=== PATIENT | female | born 1955 | race Caucasian/White ===

== ENCOUNTER → 2020-04-16 | Outpatient (CLI) | payer MEDICARE ==
--- NOTE | 2020-04-19 13:05 | REP ---
INDICATION: PANCREATITIS. COMPARISON: Comparison is made with outside studies including CT study and MRI study of the abdomen March 05, [address] study of the chest March 17, 2020.. TECHNIQUE: Axial and sagittal T1 and T2 weighted sequences include spin echo, fast spin echo, gradient echo, in and out of phase, and dynamically acquired sequential postcontrast images. Gadolinium enhancement dose is 14 mL of intravenous ProHance. FINDINGS: In the interval since the March 05, 2020 prior imaging studies, the patient has undergone percutaneous internal external biliary stent placement. There is mild intrahepatic biliary ductal dilation but bile ducts are improved in caliber. Moderate extrahepatic dial bile duct dilation is observed. The stent is seen in good position. There is a small cyst in the left lobe of the liver. No other liver mass lesion is appreciated. No splenic lesion is observed. Fullness is again seen in the left adrenal gland unchanged consistent with a small left adrenal nodule. There is some signal dropout in the left adrenal nodule on out of phase imaging suggesting a left adrenal adenoma. There is no evidence of regional adenopathy. However, the pancreas quite abnormal. There is parenchymal atrophy the pancreatic tail and dilation of the main pancreatic duct is seen mild in degree. The previous study showed a low-density irregular mass in the tail of the pancreas. This is improved. On today's exam, there is mass effect in the pancreatic head surrounding the intrapancreatic portion of the stent. The common hepatic duct segment is dilated just above this to a caliber of at least 1.5 cm. This portion the pancreas contains multiple punctate calcifications on CT imaging and has a rounded fullness. This area the pancreatic head measures 2.1 x 2.6 by 2.7 cm. A cannot exclude a neoplastic mass in this portion of the head of the pancreas. The improvement in the lesion in the pancreatic tail in the interval suggests pancreatic cyst is abscess or pseudocyst. However, I do not see a patent splenic vein. Rather, there are venous collaterals in the left upper quadrant. This is not a change. There is still a small residual nonenhancing area in the pancreatic tail measuring 1.2 cm. There is no evidence of ascites. IMPRESSION: Improvement noted in the bile ducts within the liver and above the pancreatic head post percutaneous internal external biliary drain placement. The necrotic appearing mass in the tail of the pancreas has improved in size. The mass in the head of the pancreas persists. The splenic vein is felt to be occluded and there are left upper quadrant collaterals. I cannot exclude pancreatic malignancy. Small left adrenal nodule most consistent with adrenal adenoma. <Electronically signed by Olegario Slaughter > 04/19/20 [id number]
== END ==
LOC: M RAD 15:45
PROVIDERS: ATTEND Nurse Practitioner Family
DX: K86.1 Other chronic pancreatitis (principal); Z96.89 Presence of other specified functional implants

== ENCOUNTER → 2020-12-10 | Outpatient (CLI) | payer MEDICARE ==
--- NOTE | 2020-12-10 16:00 | RADONC.CN ---
Radiation Oncology Hx/Consult Radiation Oncology Consult Date of Service: Dec 10, 2020 Pt Identifier Do Bettencourt is a 65 year old female with [id number] pancreatic adenocarcinoma. She is known to have a pancreatic head mass 3 cm in maximal dimension at diagnosis as well as a pancreatic body lesion 2.5 cm in maximal dimension at diagnosis as well as a suspicious lesion in the peripheral liver and a periumbilical nodule which were not biopsy proven. She is s/p internal stent placement. She has completed 9 cycles of [address] with Dr[address] Stephenson, last on 10/01/20 and has experienced a metabolic WA in the pancreatic lesions as well as the suspected metastatic lesions. No further chemotherapy is recommended due to poor reserve. I am consulting today at the requests of Drs. Rosenthal and Seema, via phone with Do for consideration of consolidative SBRT. Diagnosis/Treatment History Oncologic History History of amina-en-y gastric bypass Presented in February 2020 with bloody emesis and abdominal pain. She underwent CT abdomen pelvis which demonstrated necrotic pancreatic head and body masses 3 cm and 2.5 cm, respectively with extensive pancreatic and biliary ductal dilatio n. 03/11/20 Internalization of biliary drain 03/12/20 Bile duct brushing with adenocarcinoma 04/16/20 MRI abdomen redemonstrating pancreatic head and body masses 04/26/20 CT chest negative 04/29/20 PET-CT Head lesion SUV 9.59 3cm, body lesion SUV 6.59 2 cm, hypodense peripheral liver lesion 1.5 cm SUV 6.57, periumbilical nodular density SUV 8.59 05/12/20-10/01/20 FOLFIRINOX x 9 cycles c/b pancytopenias, anemia, cirrhosis 11/11/20 PET-CT Minimal uptake in pancreatic head lesion now ~1cm in size Recent data: CA-[id number] 11/08/20 <2 09/27/20 <2 06/21/20 3 05/25/20 12 Interval History On the phone with her daughter Nicole. Lei reports she has lost some weight recently, "a few pounds", appetite is poor, she takes zofran for nausea. She has no significant abdominal pain at this time. Her main complaint today however is lower extremity swelling, which has been worse over the last month. She takes a water pill for this. She denies abdominal distension or jaundice. No recent fevers or chills. Past Medical History: Asthma COPD DM HTN Hypothyroid Past Surgical History: Breast surgery x 2 (benign) Cholecystectomy Amina-en-y bypass Hemorrhoid surgery Tonsillectomy Right MINESH 2019 Family History: Father throat cancer Social History: Former smoker 10 pack year quit 1980s Former heavy drinker, quit ~2013 Review of Systems Constitutional: Reports: Weight Loss; Denies: Chills, Fever Pulmonary: Denies: Dyspnea Cardiovascular: Denies: Chest Pain Gastrointestinal: Reports: Nausea; Denies: Abdominal Pain, Melena Hematologic: Reports: Bruising Psych: Reports: Mood Normal Vital Signs Telehealth General Exam: Alert, Cooperative, No Acute Distress Neuro Exam: Normal Speech Psych Exam: Mental status NL, Memory Intact, Oriented x 3 Diagnostic and Laboratory Diagnostic Review Radiologic images, relevant labs and pathology reports were personally reviewed and discussed with Ms. Bettencourt. Assessment and Plan Impression Ms. Bettencourt is a 65 year old female with a history of [id number] pancreatic adenocarcinoma. She is known to have a pancreatic head mass 3 cm in maximal dimension at diagnosis as well as a pancreatic body lesion 2.5 cm in maximal dimension at diagnosis as well as a suspicious lesion in the peripheral liver and a periumbilical nodule which were not biopsy proven. She is s/p internal stent placement. She has completed 9 cycles of F[address]OX with Dr. Stephenson, last on 10/01/20 and has experienced a metabolic WA in the pancreatic lesions as well as the suspected metastatic lesions. No further chemotherapy is recommended due to poor reserve. I am consulting today at the requests of Drs. Rosenthal and Seema, via phone with Do for consideration of consolidative SBRT. Stage Pancreatic head and body [id number] (question mets at diagnosis, not biopsy confirmed) stage X Performance Status ECOG 2 Plan We had an extensive discussion with Ms. Bettencourt regarding the diagnosis at hand and available therapeutic options. I reviewed her records from [facility], she has had some complication as of late with anemia and thrombocytopenia from chemotherapy as well as mounting nica pheral edema from cirrhosis. Dr. Stephenson is not recommending any additional chemotherapy at this time. I have reviewed her imaging to date and she has experienced a steady reduction in FDG avidity in the pancreatic head and body lesions. I can also appreciate the initial foci concerning for metastases especially the anterior abdominal periumbilical lesion, which may be/have been a sister Kaila Márquez's node. At the same time neither this area, nor the peripheral liver lesion mentioned on the original PET-CT report from April 2020 were biopsied and so the true 'M' stage is not conclusively known. In any event, she was deemed inoperable at [facility] given the multifocality of the pancreatic tumors. The residual hypermetabolism in the pancreatic head on the most recent PET-CT from 11/11/20 is barely perceptible and I do not see any in the body. The associated CT scan is a poor correlate for the lesions. Now that she has received maximum tolerable systemic therapy, it would be worthwhile to consolidate the remaining pancreatic lesions with SBRT. I discussed that to do this we would need to update her MRI, I would prefer this done at [facility], given the utility of a directly comparable acquisition to the 04/16/20 scan, also done here on a 3T scanner. I can see the lesions in question clearly on the April prior and so would be able to accurately delineate any residual tumor on the updated study. I would use this in conjunction with the serial PET imaging to formulate a radiation plan comprehensive of any anatomic or metabolic residual tumor. I also discussed fiducial placement which would be of assistance to localize the lesions in question, but as I note she has an internal drain which is a reasonably stable surrogate for fiducials, in addition, she has some pancreatic calcifications adjacent to the head mass which also serve this purpose, thus I don't consider fiducial placement necessary. It also would subject her to another invasive procedure, which could be fraught given her liver dysfunction and cytopenias. As for a treatment regimen, I would tentatively plan for 35 Gy in 5 fractions SBRT, with VMAT planning. We can dose up or down depending on the anatomy at the time of planning. She agreed to proceed. If there was no anatomic residual tumor on repeat MRI to target, then we could regroup and discuss in a multidisciplinary fashion the utility of additional treatment versus surveillance. In that instance conventionally fractionated consolidation RT might be in her best interest, and this could be accomplished closer to home potentially. We discussed the logistics of receiving radiation therapy in detail including the need for a 1-time planning session. This can be scheduled on the same day as her MRI. I will use a 4DCT planning approach as a first step. We will also acquire an expiration breath hold scan the combination of which will allow us to assess for internal target motion which will inform and allow us to reduce PTV margins. We discussed the anticipated side effects of SBRT including fatigue and nausea, as well as less common phenomena, like diarrhea, and pancreatitis. After discussing the risks, benefits and alternatives to radiation therapy, Ms. Bettencourt was amenable to pursuing radiotherapy. All questions were answered to the patient's satisfaction. We instructed the patient that if there were any questions,concerns or changes in clinical status in the interim to contact us. I will also reach out to Dr. Stephenson next week to discuss this plan. Recommendations Repeat MRI abdomen SBRT to residual pancreatic lesions 35 Gy in 5 fractions tentatively with VMAT 4DCT Simulation same day as MRI abdomen Billing Statement Telehealth consultation: Total time of [30] minutes was spent preparing for the visit [3], obtaining HPI [4], examining the patient [0], reviewing diagnostic tests [7], discussing management options [7], coordinating care [2], and writing this note [7]. GABI GUZMAN MD Dec 10, 2020 14:48
== END ==
LOC: M ONCR 11:49
PROVIDERS: ATTEND General Practice
DX: C25.0 Malignant neoplasm of head of pancreas (principal); C25.1 Malignant neoplasm of body of pancreas; K74.60 Unspecified cirrhosis of liver; R60.0 Localized edema; Z87.891 Personal history of nicotine dependence; Z92.21 Personal history of antineoplastic chemotherapy; Z98.84 Bariatric surgery status

== ENCOUNTER 2020-12-21 09:02 | Outpatient (RCR) | payer MEDICARE | END 2021-01-04 | LOC: M ONCR 09:02 | PROVIDERS: ATTEND General Practice | DX: C25.8 Malignant neoplasm of overlapping sites of pancreas (principal); Z98.84 Bariatric surgery status; J44.9 Chronic obstructive pulmonary disease, unspecified; E11.9 Type 2 diabetes mellitus without complications; I10 Essential (primary) hypertension; J45.909 Unspecified asthma, uncomplicated ==

== ENCOUNTER → 2020-12-21 | Outpatient (CLI) | payer MEDICARE ==
[~2020-12-21] MED LIST: PROHANCE 279.3MG/ML 15ML VIAL As Ordered ONE
--- NOTE | 2020-12-21 13:29 | REP ---
INDICATION: PANCREATIC CA, RESTAGING. COMPARISON: PET-CT 11/11/2020, MRI 04/16/2020. TECHNIQUE: Multiple sequences obtained in the axial coronal planes prior to and following the intravenous administration of 12 cc ProHance. FINDINGS: There is a small hiatal hernia. There is a subcentimeter cyst in the left lobe of the liver. There is diffuse fatty infiltration of the liver. The spleen is normal in size with no intrinsic abnormality. There is stable left adrenal gland thickening. The right adrenal gland is normal. Intrahepatic biliary dilatation has improved since the prior MRI exam, with a common bile duct stent noted. Artifact from the stent somewhat obscures the region of the pancreatic head. At the site of the prior pancreatic head mass there is ill-defined soft tissue which measures 1.6 x 0.6 cm. The ill-defined heterogeneously enhancing tissue in the tail the pancreas is improved, 2.2 x 1.3 cm. No renal abnormality is seen. No adenopathy is seen. There is a very small amount of scattered free fluid in the abdomen. IMPRESSION: Improved biliary dilatation. Common bile duct stent noted. A small amount of ill-defined soft tissue is seen at the site of the previously noted pancreatic head mass, significantly improved. Ill-defined heterogeneously enhancing soft tissue in the region of the tail of the pancreas is improved. <Electronically signed by Pascual Russell > 12/21/20 [id number]
== END ==
LOC: M RAD 10:23
PROVIDERS: ATTEND General Practice
DX: C25.8 Malignant neoplasm of overlapping sites of pancreas (principal)
CPT/HCPCS: 74183; A9576